=== PATIENT | male | born 1985 | race Caucasian/White ===

== ENCOUNTER 2023-09-08 13:37 | Outpatient (CLI) | payer OTHER ==
--- NOTE | 2023-09-08 16:11 | MRI Report ---
PROCEDURE: ANKLE WO - RT INDICATIONS: ANKLE PAIN TECHNIQUE: Noncontrast Magnetic Resonance Imaging (MRI) of the ankle/hindfoot was performed utilizing the follow ing sequences: sagittal T1 spin echo, sagittal T2 fast spin echo with fat saturation, axial PD fast s pin echo, axial T2 fast spin echo with fat saturation, coronal T1 spin echo, and coronal T2 fast spin echo with fat saturation. COMPARISON: None. FINDINGS: Image quality: Excellent. Bones and joints: No acute trabecular bone injury or fracture. No hindfoot coalition. Small chronic osteochondral lesio n at the lateral talar dome measuring up to 9 x 4 x 3 mm with cartilage loss and subchondral cystic c hanges. No disruption of the subchondral plate or loose osteochondral fragment is seen. Subchondral c ystic changes and small marginal osteophytes are also seen at the anterolateral tibial plafond. Medial structures: The deltoid ligament and the spring ligament complex are intact. Mild fluid along the posterior tibia lis, flexor digitorum longus, and flexor hallucis longus tendon sheaths is likely related to a small amount of tibiotalar joint fluid. The posterior tibial neurovascular bundle appears normal within the tarsal tunnel, without extrinsic mass effect. Lateral structures: The anterior and posterior distal tibiofibular ligaments are intact. Remote prior sprains of the ante rior talofibular ligament and calcaneofibular ligament. The posterior talofibular ligament is intact. The peroneus brevis and longus tendons demonstrate mild tenosynovitis. The sinus tarsi demonstrates normal fatty signal. Anterior structures: The tibialis anterior, extensor hallucis longus, and extensor digitorum longus tendons appear intact. Posterior and plantar structures: The Achilles tendon is intact. There is thickening of the proximal plantar fascia without surrounding edema, consistent with chronic fasciopathy. No disproportionate atrophy of the abductor digiti minim i muscle. IMPRESSION: 1.Small osteochondral lesion at the lateral talar dome with cartilage loss and subchondral cystic justine nges but no disruption of the subchondral plate or loose osteochondral fragment. Degenerative changes also seen at the adjacent anterior tibial plafond. 2.Remote prior grade 1-2 sprains of the anterior talofibular ligament and the calcaneofibular ligamen t. 3.Mild peroneus brevis and longus tenosynovitis. 4.Mild chronic proximal plantar fasciitis. Reviewed by: Rafa Glez MD on 09/08/2023 4:10 PM PDT Approved by: Rafa Glez MD on 09/08/2023 4:10 PM PDT Station ID: [id number]
== END 2023-09-08 13:38 | disposition home or self-care (01) ==
LOC: DI 13:37
DX: M19.071 Primary osteoarthritis, right ankle and foot (principal); M89.9 Disorder of bone, unspecified; M72.2 Plantar fascial fibromatosis